=== PATIENT | female | born 1990 | race Caucasian/White ===

== ENCOUNTER → 2021-08-29 15:36 | Outpatient (CLI) | payer OTHER, MEDICAID, SELFPAY ==
--- NOTE | 2021-08-29 15:48 | DI.US.S_ITS ---
PROCEDURE: US OB <= 14 WEEKS FETUS INDICATIONS: Dating and viability OUTSIDE/PRIOR DATING DATA: Last menstrual period (LMP): 06/21/2020 LMP-based estimated date of delivery (CHANA): 03/28/2022. First dating scan (date and location): 08/29/2021. Estimated date of delivery (CHANA) from first dating scan: N/a. TECHNIQUE: Real-time scanning was performed of the fetus and maternal pelvic organs, with image documentation. Endovaginal scanning was also performed to better visualize the fetus and maternal ovaries. COMPARISON: None. FINDINGS: Embryo: No pole seen. Mean gestational sac diameter measures 2.4 cm corresponding to 7 weeks 3 days. Gestational sac is irregular. Prominent yolk sac is seen. Heart rate: N/a Maternal organs: Ovaries within normal limits. IMPRESSION: 1. Intrauterine gestational sac which is mildly irregular measuring 2.4 cm corresponding to 7 weeks 3 days and no pole is seen. A prominent yolk sac is identified. Recommend short-term follow-up pelvic ultrasound in 11 11 14 days to further assess viability. We strive to produce accurate, complete, and clear reports of imaging services. To assist us in improving patient care, this report was composed using standard report templates and voice recognition software. Therefore, it may contain abnormal punctuation, insertions and/or omissions. Occasional wrong-word or sound-alike substitutions may occur. Though we review the report and make efforts to correct it, we do recommend that the report be read carefully in proper context to recognize any text inaccuracies. Dictated by: Christiano ANNE Interpreted: Shaye Whaley MD on 08/29/2021 at 16:34 Transcribed by: ROSAURA on 08/29/2021 at 16:36 Approved by: Shaye Whaley M.D. on 09/14/2021 at 8:32
== END ==
PROVIDERS: Referring Provider Obstetrics & Gynecology; Visit Provider Obstetrics & Gynecology
DX: Z34.81 Encounter for supervision of other normal pregnancy, first trimester (principal); Z3A.01 Less than 8 weeks gestation of pregnancy
CPT/HCPCS: 76801; 76817

== ENCOUNTER → 2021-09-11 12:23 | Outpatient (CLI) | payer OTHER, MEDICAID, SELFPAY ==
[2021-09-11 14:07] LABS: Hematocrit 40.2 % (36-46); Hemoglobin 13.7 g/dL (12.0-16.0); Mean Corpuscular HGB Conc 34.1 % (30-36); Mean Corpuscular Hemoglobin 30.4 PG (26-34); Mean Corpuscular Volume 89.4 fL (80-100); Platelet Count 388 X10^3/uL (150-400); Red Cell Distribution Width 12.7 % (11.6-14.8)
[2021-09-11 14:32] LABS: Hemoglobin A1C% w Est Avg Glu 5.3 % (4.0-6.0)
[2021-09-11 14:42] LABS: HCG Quantitative /Beta subunit 4743.7 mIU/mL
== END ==
PROVIDERS: Referring Provider Obstetrics & Gynecology; Visit Provider Obstetrics & Gynecology
DX: Z34.81 Encounter for supervision of other normal pregnancy, first trimester (principal); Z34.91 Encounter for supervision of normal pregnancy, unspecified, first trimester; Z86.32 Personal history of gestational diabetes
CPT/HCPCS: 36415; 83036; 84702; 85027; 86850; 86900; 86901

== ENCOUNTER → 2021-09-13 16:40 | Outpatient (CLI) | payer OTHER, MEDICAID, SELFPAY ==
--- NOTE | 2021-09-13 16:45 | DI.US.S_ITS ---
PROCEDURE: US OB FOLLOW UP INDICATIONS: OB US follow-up OUTSIDE/PRIOR DATING DATA: Last menstrual period (LMP): 06/21/2021. LMP-based estimated date of delivery (CHANA): 03/28/2022. First dating scan (date and location): 09/13/2021 at . Estimated date of delivery (CHANA) from first dating scan: n.a.. TECHNIQUE: Real-time scanning was performed of the fetus, with image documentation and biometric measurements. Endovaginal scanning: Yes. COMPARISON: [facility], [place], US OB <= 14 WEEKS FETUS, 09/12/2021, 8:44. [facility], [place], US OB <= 14 WEEKS FETUS, 08/29/2021, 16:54. FINDINGS: There is a sac in the uterine cavity measuring 2.5 cm, corresponding to 7 weeks 4 days for gestational age. No pole or yolk sac is visualized. Based on the LMP, the estimated gestational age is 12 weeks 0 day. There is a corpus luteal cyst in right ovary. Prominent ovarian vessels are seen bilaterally, right greater than left. IMPRESSION: 1. There is a gestational sac within the uterine cavity measuring 7 weeks 4 days based on MGSD. No pole or yolk sac is present. The ultrasound findings are highly suspicious for blighted ovum. Please correlate with clinical data and quantitative serum beta HCG. We strive to produce accurate, complete, and clear reports of imaging services. To assist us in improving patient care, this report was composed using standard report templates and voice recognition software. Therefore, it may contain abnormal punctuation, insertions and/or omissions. Occasional wrong-word or sound-alike substitutions may occur. Though we review the report and make efforts to correct it, we do recommend that the report be read carefully in proper context to recognize any text inaccuracies. Dictated by: Kenneth Hernandez M.D. on 09/13/2021 at 17:30 Approved by: Kenneth Hernandez M.D. on 09/13/2021 at 17:39
== END ==
PROVIDERS: Referring Provider Obstetrics & Gynecology; Visit Provider Obstetrics & Gynecology
DX: O36.80X0 Pregnancy with inconclusive fetal viability, not applicable or unspecified (principal); O26.859 Spotting complicating pregnancy, unspecified trimester
CPT/HCPCS: 76816; 76817

== ENCOUNTER 2024-12-19 14:16 | Emergency (ER) | payer SELFPAY ==
[2024-12-19] VITALS (11 sets, daily range): BP systolic 117–168; BP diastolic 69–96; PULSE 63–74; RESP 17; TEMP 36.6; O2SAT 95–100; BMI 45.6
--- NOTE | 2024-12-19 14:36 | EKG_ITS ---
[facility] [address] [place] [address] Test Date: 2024-12-19 Pat Name: Joyce Pat Department: [facility] Room: Gender: Female Client Sales And Service Officer: MARY : 1990 Requested By: Order Number: [id number] Reading MD: Juan Mcnally MD Measurements Intervals [place] Rate: 73 P: TX: 170 QRS: 200 QRSD: 92 T: 151 QT: 382 QTc: 420 Interpretive Statements Normal sinus rhythm Right superior axis deviation Nonspecific ST and T wave abnormality NO PRIOR TRACING Electronically Signed On 12-20-2024 7:56:32 PDT by Juan Mcnally MD
--- NOTE | 2024-12-19 14:36 | DI.RAD.S_ITS ---
PROCEDURE: XR CHEST 1V INDICATIONS: Chest Pain TECHNIQUE: One view of the chest was acquired. COMPARISON: None. FINDINGS: Surgical changes and devices: None. Lungs and pleura: Lungs are clear. No pleural effusions or pneumothorax. Mediastinum: Mediastinal contours appear normal. Heart size is normal. Bones and chest wall: No suspicious bony lesions. Overlying soft tissues appear unremarkable. IMPRESSION: Normal portable chest. Dictated by: Anthony Newell M.D. on 12/19/2024 at 14:05 Approved by: Anthony Newell M.D. on 12/19/2024 at 14:05
[2024-12-19] MEDS: ASPIRIN 81 MG CHEW TAB 324 MG PO (14:46)
[2024-12-19 15:17] LABS: Add Manual Diff / Slide Review NO; Hematocrit 37.8 % (36-46); Hemoglobin 12.6 g/dL (12.0-16.0); Lymphocytes Absolute Auto 2700 /uL (1100-4500); Mean Corpuscular HGB Conc 33.2 % (30-36); Mean Corpuscular Hemoglobin 30.0 PG (26-34); Mean Corpuscular Volume 90.1 fL (80-100); Platelet Count 352 X10^3/uL (150-400)
[2024-12-19 15:22] LABS: INR 1.0 (0.9-1.3); Prothrombin Time 11.4 SECONDS (9.4-12.5)
[2024-12-19 15:25] LABS: PTT Partial Thromboplastin Tim 28 SECONDS (25.1-36.5)
[2024-12-19 15:27] LABS: Alanine Aminotransferase 15 IU/L (<35); Albumin 4.4 g/dL (3.5-5.0); Albumin Globulin Ratio 1.5 (1.0-2.8); Alkaline Phosphatase 73 U/L (38-126); Blood Urea Nitrogen 14 mg/dL (7-17); Calcium 8.8 mg/dL (8.4-10.2); Carbon Dioxide 23 mmol/L (22-32); Chloride 104 mmol/L (98-107); Creatine Kinase 96 U/L (30-135); Estimated Glomerular Filt Rate > 60 mL/min (>60); Globulin 3.0 g/dL (1.7-4.1); Glucose 84 mg/dL (70-99); HEMOLYSIS < 15 (0-50); Lipase 162 U/L (23-300); Magnesium 1.8 mg/dL (1.6-2.3); Potassium 4.0 mmol/L (3.4-5.1); Sodium 134 mmol/L (137-145); Total Protein 7.4 g/dL (6.3-8.2)
[2024-12-19 15:38] LABS: NT-proBNP (BNP-Adult 18+) 23 pg/mL (<125); Troponin I < 0.012 ng/mL (0.01-0.034)
[2024-12-19 17:34] LABS: Troponin I < 0.012 ng/mL (0.01-0.034)
--- NOTE | 2024-12-19 20:28 | ED.CHESTPAIN ---
HPI - Chest Pain General Chief Complaint: Chest Pain Stated Complaint: Chest pain, light headed Time Seen by Provider: 12/19/24 18:44 Source: patient Mode of arrival: Ambulatory History of Present Illness HPI narrative: 34-year-old female with no cardiac history presents with midsternal pain off and on that started around 11 this morning at work. Patient is a longer in pain at this moment. No other symptoms. Related Data Home Medications ?Medication ?Instructions ?Recorded ?Confirmed biotin 10,000 mcg capsule 20,000 mcg PO 09/08/21 09/12/21 cholecalciferol (vitamin D3) 250 250 mcg PO DAILY 09/08/21 09/12/21 mcg (10,000 unit) capsule green tea leaf extract cap PO 09/08/21 09/12/21 prenat.vits,meghann,ckh-kvpq-wqynz 1 tab PO DAILY 09/08/21 09/12/21 sertraline 50 mg tablet 100 mg PO DAILY 12/19/24 12/19/24 Allergies Allergy/AdvReac Type Severity Reaction Status Date / Time No Known Allergies Allergy Verified 12/19/24 14:30 Review of Systems Review of Systems ROS Unobtainable: All systems reviewed & are unremarkable except as noted in HPI and below Patient History Medical History (Updated 12/19/24 @ 20:57 by Isaac Lopez MD) History of gestational diabetes Spinal headache Hypothyroid Surgical History (Updated 09/08/21 @ 10:42 by Ruth Ann Cobb RN) Previous section History of adenoidectomy Hx of tonsillectomy Family History (Updated 09/08/21 @ 10:45 by Ruth Ann Cobb RN) Sister Spina bifida Epilepsy Grandmother Diabetes mellitus Alcoholism Grandfather Heart disease Alcoholism Brother Alcoholism Grandmother Alcoholism Alcoholic liver disease Grandfather Alcoholism Alzheimers disease Father Hypertension Social History marital status: number of children: 1 household members: spouse and children lives independently: Yes housing: house pets and animals: Yes (2 dogs) education level: college (currently in college) occupational status: employed (massage therapist) and student current occupational exposures/hazards: No special jose roberto needs: No seatbelt use: always water heater temp set < 120 deg: Yes working smoke detector in home: Yes carbon monox detector in home: Yes firearms in home: No do you feel safe at home: Yes Smoking Status: Current every day smoker second hand exposure: No alcohol intake: former (Occasionally when not .) substance use type: marijuana (recreational, not since .) during the past year weight has: decreased > 10 lbs (intentional ~30 lb) well-balanced diet: daily or most days daily servings fruits/ve-4 caffeine: Yes (Aware of 200mg limit) Type(s) of exercise: walking, bicycling (stationary bike), weight lifting and yoga Smoking Status: Current every day smoker Exam Narrative Exam Narrative: General: Patient appears to be in no acute distress, acting appropriately Head: normocephalic, atraumatic, HEENT: Pupils equal round reactive, eyes tracking well, neck supple, no JVD Heart: regular rate and rhythm, no murmurs, rubs, or gallops heard Lungs: clear to auscultation, no adventitious sounds Abdomen: soft , nontender, nondistended, positive bowel sounds Neurological: no focal neurological signs, moving all extremities well, alert and oriented x3, Psych: good judgment ,good insight, mood is normal. Initial Vital Signs Initial Vital Signs: Vital Signs Temperature 97.9 F 12/19/24 14:30 Pulse Rate 71 12/19/24 14:30 Respiratory Rate 17 12/19/24 14:30 Blood Pressure 167/96 H 12/19/24 14:30 Pulse Oximetry 95 12/19/24 14:30 Oxygen Delivery Method Room Air 12/19/24 14:30 Scores HEART Score Heart Score history: Slightly Suspicious Heart Score EKG: Normal Heart Score Age: < 45 years old Heart Score risk factors: No known risk factors Heart Score troponin: < or = to normal limit Heart Score Total: 0 Course Orders Ordered: Discontinued Medications Aspirin (Aspirin 81 Mg Chew Tab) 324 mg PO NOW ONE Stop: 12/19/24 14:37 Last Admin: 12/19/24 14:46 Dose: 324 mg Documented By: QASIM Vital Signs Vital signs: Vital Signs - 8 hr 12/19/24 14:30 12/19/24 18:02 12/19/24 18:03 Temperature 97.9 F Pulse Rate 71 72 Respiratory Rate 17 Blood Pressure 167/96 H 168/94 H Pulse Oximetry 95 98 Oxygen Delivery Method Room Air 12/19/24 18:03 12/19/24 18:30 12/19/24 18:31 Temperature Pulse Rate 74 64 Respiratory Rate Blood Pressure 154/69 H Pulse Oximetry 100 100 Oxygen Delivery Method 12/19/24 18:31 12/19/24 19:00 12/19/24 19:01 Temperature Pulse Rate 64 66 Respiratory Rate Blood Pressure 117/78 Pulse Oximetry 100 97 Oxygen Delivery Method 12/19/24 19:01 12/19/24 19:30 12/19/24 19:31 Temperature Pulse Rate 68 63 63 Respiratory Rate Blood Pressure Pulse Oximetry 99 100 100 Oxygen Delivery Method 12/19/24 19:31 12/19/24 20:00 12/19/24 20:00 Temperature Pulse Rate 70 Respiratory Rate Blood Pressure 135/80 130/80 Pulse Oximetry 100 Oxygen Delivery Method 12/19/24 20:30 12/19/24 20:30 Temperature Pulse Rate 69 Respiratory Rate Blood Pressure 136/80 Pulse Oximetry 100 Oxygen Delivery Method MDM - Chest Pain Lab Data 12/19/24 15:00 12/19/24 15:00 Labs: Lab Results 12/19/24 12/19/24 Range/Units 15:00 17:05 WBC 9.6 (4.5-11.0) X10^3/uL RBC 4.20 (4.0-5.2) X10^6/uL Hgb 12.6 (12.0-16.0) g/dL Hct 37.8 (36-46) % MCV 90.1 (80-100) fL MCH 30.0 (26-34) PG MCHC 33.2 (30-36) % RDW 13.8 (11.6-14.8) % Plt Count 352 (150-400) X10^3/uL Neut % (Auto) 62.9 (50-75) % Lymph % (Auto) 28.5 (25-40) % [place] % (Auto) 6.9 (3-14) % Eos % (Auto) 1.2 L (2-4) % Baso % (Auto) 0.5 (0-2) % Neut # (Auto) 6000 (0748-2193) /uL Lymph # (Auto) 2700 (7948-4929) /uL [place] # (Auto) 700 (0-900) /uL Eos # (Auto) 100 (0-450) /uL Baso # (Auto) 100 (0-100) /uL PT 11.4 (9.4-12.5) SECONDS INR 1.0 (0.9-1.3) APTT 28 (25.1-36.5) SECONDS Sodium 134 L (137-145) mmol/L Potassium 4.0 (3.4-5.1) mmol/L Chloride 104 (98-107) mmol/L Carbon Dioxide 23 (22-32) mmol/L BUN 14 (7-17) mg/dL Creatinine 0.64 (0.52-1.04) mg/dL Estimated GFR > 60 (>60) mL/min BUN/Creatinine Ratio 21.9 (6-22) Glucose 84 (70-99) mg/dL Calcium 8.8 (8.4-10.2) mg/dL Magnesium 1.8 (1.6-2.3) mg/dL Total Bilirubin 0.4 (0.2-1.3) mg/dL AST 26 (14-36) IU/L ALT 15 (<35) IU/L Alkaline Phosphatase 73 (38-126) U/L Total Creatine Kinase 96 (30-135) U/L Troponin I < 0.012 < 0.012 (0.01-0.034) ng/mL NT-Pro-B Natriuret Pep 23 (<125) pg/mL Total Protein 7.4 (6.3-8.2) g/dL Albumin 4.4 (3.5-5.0) g/dL Globulin 3.0 (1.7-4.1) g/dL Albumin/Globulin Ratio 1.5 (1.0-2.8) Lipase 162 (23-300) U/L ECG Data Interpretation: EKG shows normal sinus rhythm at 73 beats per minute. Right superior axis deviation. No STT wave changes normal TN intervals. No previous EKG to compare. MDM Narrative Medical decision making narrative: 34-year-old female comes in for substernal chest pain where her workup was negative. Patient has a heart score of 0. Patient is no longer symptomatic. More likely dealing with GERD potentially or other noncardiac issue. Advised to follow up back in the ER for new chest pain or follow up with Cardiology. Discharge Plan Departure Patient Disposition: Home Clinical Impression: Atypical chest pain Instructions: DI for Atypical Chest Pain Activity Restrictions/Additional Instructions: Try omeprazole over the counter and follow a gerd diet so staying away from too much greasy,spicy foods and trying to quit/cut back on tobacco . Follow up if chest pain worsens. May want to follow up with Cardiology for further testing if pain persists as well. Prescriptions: No Action prenat.vits,meghann,dpn-[id number]-nmhga Tablet 1 tab PO DAILY cholecalciferol (vitamin D3) 250 mcg (10,000 unit) capsule 250 mcg PO DAILY biotin 10,000 mcg capsule 20,000 mcg PO green tea leaf extract Capsule PO sertraline 50 mg tablet 100 mg PO DAILY Referrals: Miscellaneous,Doctor, MD [Primary Care Provider, Medical] Stand Alone Forms: Patient Portal/API
== END 2024-12-19 20:59 | disposition home or self-care (01) ==
PROVIDERS: Emergency Medicine; Emergency Provider Family Medicine
DX: R07.89 Other chest pain (principal)
CPT/HCPCS: 36415; 71045; 80053; 82550; 83690; 83735; 83880; 84484; 85025; 85610; 85730; 93005; 93010; 99284